=== PATIENT | female | born 1945 | race Caucasian/White ===

== ENCOUNTER → 2017-01-12 | Outpatient (REF) | payer MEDICARE, OTHER | LOC: M LAB REF 16:28 | PROVIDERS: ATTEND Ophthalmology | DX: D23.12 Other benign neoplasm of skin of left eyelid, including canthus (principal) ==

== ENCOUNTER → 2017-09-15 | Outpatient (CLI) | payer MEDICARE, OTHER ==
[~2017-09-15] MED LIST: METHACHOLINE KIT (J7674) INH
== END ==
LOC: M CARPUL 08:39
DX: R91.8 Other nonspecific abnormal finding of lung field (principal)

== ENCOUNTER → 2017-09-15 | Outpatient (CLI) | payer MEDICARE, OTHER | LOC: M RAD 08:20 | DX: R91.8 Other nonspecific abnormal finding of lung field (principal) | CPT/HCPCS: J7674 ==

== ENCOUNTER → 2018-01-21 | Outpatient (CLI) | payer MEDICARE, OTHER | LOC: M RAD 09:36 | DX: R91.8 Other nonspecific abnormal finding of lung field (principal) | CPT/HCPCS: 71250 ==

== ENCOUNTER 2018-04-03 13:09 | Emergency (ER) | payer MEDICARE, OTHER ==
[2018-04-03 13:40] LABS: BEDSIDE GLUCOSE 134 MG/DL (83-110)
[2018-04-03] MEDS: MECLIZINE 25 MG TABLET PO (14:15)
[2018-04-03] MEDS: hydrALAZINE INJ 20 MG/ML VIAL IV ×2 (14:16→15:30)
[2018-04-03] MEDS: NS 1,000 ML IV (14:16)
[2018-04-03 14:39] LABS: BASO # 0.1 10^3/uL (0.0-0.2); BASO % 0.5 % (0.0-1.0); EOS # 0.1 10^3/uL (0.0-0.50); EOS % 0.8 % (0.0-3.0); HEMATOCRIT 41.4 % (36.0-47.0); HEMOGLOBIN 13.4 g/dl (12.0-15.5); IMMATURE GRANULOCYTE % 0.7 % (0-3.0); LYMPH % 17.9 % (24.0-44.0); MEAN CORPUSCULAR HEMOGLOBIN 29.5 pg (27.0-33.0); MEAN CORPUSCULAR HGB CONC 32.4 g/dl (32.0-36.5); MONO # 0.5 10^3/uL (0.0-0.8); MONO % 4.6 % (0.0-5.0); NEUTROPHILS # 8.3 10^3/uL (1.8-7.7); NEUTROPHILS % 75.5 % (36.0-66.0); PLATELET COUNT, AUTOMATED 170 10^3/uL (150-450); RED BLOOD COUNT 4.55 10^6/uL (4.00-5.40); RED CELL DISTRIBUTION WIDTH 13.8 % (11.5-14.5)
[2018-04-03 15:08] LABS: ALBUMIN 3.7 GM/DL (3.2-5.2); ALBUMIN/GLOBULIN RATIO 1.37 (1.00-1.93); ALKALINE PHOSPHATASE 99 U/L (45-117); ALT/SGPT 29 U/L (12-78); ANION GAP 9 MEQ/L (8-16); AST/SGOT 21 U/L (7-37); BILIRUBIN,DIRECT 0.1 MG/DL (0.0-0.2); BILIRUBIN,TOTAL 0.6 MG/DL (0.2-1.0); BLOOD UREA NITROGEN 17 MG/DL (7-18); CALCIUM LEVEL 8.8 MG/DL (8.8-10.2); CARBON DIOXIDE LEVEL 26 MEQ/L (21-32); CHLORIDE LEVEL 107 MEQ/L (98-107); CPK CREATINE PHOSPHOKINASE 73 U/L (26-192); GLOMERULAR FILTRATION RATE > 60.0 (>39); GLUCOSE, FASTING 121 MG/DL (70-100); MB/CK RELATIVE INDEX 1.64 (< OR =4); SODIUM LEVEL 142 MEQ/L (136-145); TOTAL PROTEIN 6.4 GM/DL (6.4-8.2); TROPONIN I < 0.02 NG/ML (< 0.10)
[2018-04-03 15:26] LABS: KETONE, URINE AUTO RFX NEGATIVE (NEGATIVE); LEUKOCYTE ESTERASE UR AUTO RFX NEGATIVE (NEGATIVE); NITRITE, URINE AUTO RFX NEGATIVE (NEGATIVE); RBC, URINE AUTO RFX 0 /HPF (0-3); SPECIFIC GRAVITY UR AUTO RFX 1.009 (1.002-1.035); SQUAM EPITHELIAL CELL UR AURFX 1 /HPF (0-6); WBC, URINE AUTO RFX 1 /HPF (0-3)
== END 2018-04-03 17:08 | disposition short-term general hospital (02) ==
LOC: M ED 13:09
DX: R42 Dizziness and giddiness (principal); R26.89 Other abnormalities of gait and mobility; I10 Essential (primary) hypertension; K21.9 Gastro-esophageal reflux disease without esophagitis; Z79.899 Other long term (current) drug therapy; Z88.5 Allergy status to narcotic agent
CPT/HCPCS: 71045

== ENCOUNTER → 2018-04-13 | Outpatient (CLI) | payer MEDICARE, OTHER ==
[~2018-04-13] MED LIST changes: +BYST10TA2; -METHACHOLINE KIT (J7674) INH; +OXYB5TAB PO; +SIMV20TA2; +TRIAMTERENE
--- NOTE | 2018-04-13 17:06 | REP ---
HISTORY: Followup thyroid nodules. COMPARISON: There are no priors for comparison. Right lobe of the thyroid gland measures 4.6 x 1.6 x 1.7 cm. Left lobe measures 4.5 x 1.5 x 2 cm. The isthmus measures 6 mm. The thyroid parenchyma echo pattern is heterogenous. There are two dominant nodules in the right lobe, one measures 4.3 x 4.4 x 3.8 mm and the other measures 5.9 x 3.8 x 4.5 mm. In the isthmus on the left, there is a 5 mm sized nodule and in the upper pole of the left lobe there is a solid 9 mm sized nodule. In the lower pole on the left posteriorly there is a 1 cm sized solid nodule. IMPRESSION: Solid nodules as described above. Electronically Signed by Ace Daly DO 04/13/2018 05:58 P
== END ==
LOC: M RAD 14:43
PROVIDERS: ATTEND Nurse Practitioner Family
DX: E04.2 Nontoxic multinodular goiter (principal)

== ENCOUNTER → 2018-05-17 | Outpatient (REF) | payer MEDICARE, OTHER | LOC: M LAB REF 17:09 | PROVIDERS: ATTEND Internal Medicine Endocrinology, Diabetes & Metabolism | DX: E04.2 Nontoxic multinodular goiter (principal) ==

== ENCOUNTER → 2019-08-30 | Outpatient (CLI) | payer MEDICARE, OTHER ==
[~2019-08-30] MED LIST changes: +OXYB-54 PO; -OXYB5TAB PO; -SIMV20TA2; +SIMV20TA22
--- NOTE | 2019-08-30 10:58 | REP ---
CT CHEST WITHOUT IV CONTRAST: CT chest performed without IV contrast. Sagittal and coronal reconstruction images are performed. Comparison is made with prior studies dating back to 09/15/2017. Calcified granuloma is seen in the posterior aspect of the right upper lobe. There is an adjacent noncalcified nodule measuring 5 mm, which has remained stable for 2 years. A 3 mm nodule is seen in the right middle lobe and another 3 mm nodule is seen in the left upper lobe, both stable. No new nodule or infiltrate is seen bilaterally. The heart is not enlarged. There is no thoracic aortic aneurysm. There is a slightly prominent precarinal lymph node which has remained stable measuring 1.2 cm in short axis dimension. No axillary adenopathy is seen. Subtle soft tissue nodule of the left lower thyroid is unchanged. Two hypodense nodules in the superior liver are stable. The patient has had a prior cholecystectomy. Right adrenal adenoma is unchanged. There are degenerative changes of the spine. There is a small hiatal hernia. IMPRESSION: Calcified granuloma right upper lobe. Three other noncalcified nodules in the lungs are stable. Slightly prominent precarinal lymph node is stable. These findings are unchanged for approximately 2 years. Electronically Signed by Curtis Flores MD 08/30/2019 11:00 A
== END ==
LOC: M RAD 08:24
PROVIDERS: ATTEND Internal Medicine Pulmonary Disease
DX: R91.8 Other nonspecific abnormal finding of lung field (principal); K44.9 Diaphragmatic hernia without obstruction or gangrene; Z90.49 Acquired absence of other specified parts of digestive tract

== ENCOUNTER → 2021-07-14 | Outpatient (REF) | payer MEDICARE, OTHER | LOC: M LAB REF 12:47 | PROVIDERS: ATTEND Internal Medicine | DX: M19.90 Unspecified osteoarthritis, unspecified site (principal) ==

== ENCOUNTER → 2021-07-15 | Outpatient (CLI) | payer MEDICARE, OTHER | LOC: M PLAIMG 09:53 | PROVIDERS: ATTEND Internal Medicine | DX: M43.06 Spondylolysis, lumbar region (principal) ==

== ENCOUNTER → 2021-09-24 | Outpatient (CLI) | payer MEDICARE, OTHER ==
[~2021-09-24] MED LIST changes: +AMLO1TAB24 PO; +BAYE81TA10 PO; +BYST5TAB2 PO; +D200CAP3 PO; +FISH1000 PO; +LEXA1TAB PO; +LOSA100T5 PO; -SIMV20TA22; +SIMV20TA22 PO; +SPIR-10 PO; +TURM500C PO; +VIT1CAPS22 PO; +VITMTA PO
== END ==
LOC: M LABSMTC 10:18
PROVIDERS: ATTEND Anesthesiology
DX: Z01.818 Encounter for other preprocedural examination (principal); Z11.52 Encounter for screening for COVID-19

== ENCOUNTER 2021-09-29 12:04 | Day surgery (SDC) | payer MEDICARE, OTHER ==
[~2021-09-29] VITALS: Ht 165.1 cm; Wt 132.4 kg
[~2021-09-29 12:04] MED LIST changes: +NS 1,000 ML IV ONE
[2021-09-29] MEDS ORDERED: fentaNYL 100 MCG/2 ML INJECTION As Ordered ONE (12:28)
[2021-09-29] MEDS ORDERED: propofoL 500 MG/50 ML VIAL As Ordered ONE (12:28)
[2021-09-29] MEDS ORDERED: LIDOCAINE 2% 100MG/5ML SDV (FOR ANES.) As Ordered ONE (12:28)
[2021-09-29 13:48] VITALS: BP 135/64
== END 2021-09-29 13:50 | disposition home or self-care (01) ==
LOC: M OPP 12:04
PROVIDERS: ATTEND Internal Medicine Gastroenterology
DX: Z12.11 Encounter for screening for malignant neoplasm of colon (principal); Z80.0 Family history of malignant neoplasm of digestive organs; K57.30 Diverticulosis of large intestine without perforation or abscess without bleeding; K64.0 First degree hemorrhoids; K22.89 Other specified disease of esophagus; K44.9 Diaphragmatic hernia without obstruction or gangrene; K31.89 Other diseases of stomach and duodenum; R12 Heartburn; Z79.02 Long term (current) use of antithrombotics/antiplatelets; Z79.899 Other long term (current) drug therapy; Z88.0 Allergy status to penicillin; Z88.5 Allergy status to narcotic agent
CPT/HCPCS: 43239; 45378; 88305; J3010

== ENCOUNTER → 2021-10-15 | Outpatient (CLI) | payer MEDICARE, OTHER ==
[~2021-10-15] MED LIST changes: -NS 1,000 ML IV ONE
== END ==
LOC: M PLAIMG 16:02
PROVIDERS: ATTEND Internal Medicine
DX: M25.561 Pain in right knee (principal); M25.562 Pain in left knee

== ENCOUNTER → 2021-11-26 | Outpatient (CLI) | payer MEDICARE, OTHER | LOC: M LABSMTC 11:36 | PROVIDERS: ATTEND Family Medicine | DX: Z11.52 Encounter for screening for COVID-19 (principal); Z20.822 Contact with and (suspected) exposure to COVID-19 | CPT/HCPCS: 87426; C9803 ==

== ENCOUNTER → 2022-01-20 | Outpatient (CLI) | payer MEDICARE, OTHER | LOC: M PLAIMG 16:08 | PROVIDERS: ATTEND Internal Medicine | DX: R05.9 Cough, unspecified (principal); R91.8 Other nonspecific abnormal finding of lung field ==

== ENCOUNTER → 2022-09-25 | Outpatient (CLI) | payer MEDICARE, OTHER | LOC: M PLAIMG 13:10 | PROVIDERS: ATTEND Internal Medicine | DX: M43.17 Spondylolisthesis, lumbosacral region (principal); M47.816 Spondylosis without myelopathy or radiculopathy, lumbar region; M54.30 Sciatica, unspecified side ==

== ENCOUNTER → 2023-05-26 | Outpatient (REF) | payer MEDICARE, OTHER ==
[2023-05-26 19:44] LABS: BASO # 0.1 10^3/uL (0.0-0.2); BASO % 0.4 % (0.0-1.0); EOS # 0.2 10^3/uL (0.0-0.5); EOS % 1.6 % (0.0-3.0); HEMATOCRIT 45.7 % (36.0-47.0); HEMOGLOBIN 14.6 g/dl (12.0-15.5); LYMPH # 3.9 10^3/uL (1.5-5.0); MEAN CORPUSCULAR HEMOGLOBIN 30.2 pg (27.0-33.0); MEAN CORPUSCULAR HGB CONC 31.9 g/dl (32.0-36.5); MEAN CORPUSCULAR VOLUME 94.4 fl (80.0-96.0); MONO # 0.9 10^3/uL (0.0-0.8); MONO % 6.6 % (2.0-8.0); NEUTROPHILS # 8.3 10^3/uL (1.5-8.5); NEUTROPHILS % 61.6 % (36.0-66.0); PLATELET COUNT, AUTOMATED 216 10^3/uL (150-450); RED BLOOD COUNT 4.84 10^6/uL (4.00-5.40); WHITE BLOOD COUNT 13.4 10^3/uL (4.0-10.0)
[2023-05-26 20:05] LABS: ALBUMIN 3.7 G/DL (3.2-5.2); ALKALINE PHOSPHATASE 87 U/L (46-116); ALT/SGPT 21 U/L (7.0-40); AST/SGOT 16 U/L (<34); BILIRUBIN,TOTAL 0.6 MG/DL (0.3-1.2); BLOOD UREA NITROGEN 25 MG/DL (9-23); CARBON DIOXIDE LEVEL 28 MMOL/L (20-31); CHLORIDE LEVEL 104 MMOL/L (98-107); CREATININE FOR GFR 0.69 MG/DL (0.55-1.30); GLOMERULAR FILTRATION RATE > 60.0 (>39); GLUCOSE, FASTING 120 MG/DL (74-106); POTASSIUM SERUM 3.3 MMOL/L (3.5-5.1); SODIUM LEVEL 141 MMOL/L (136-145)
== END ==
LOC: M LAB REF 19:26
PROVIDERS: ATTEND Internal Medicine Pulmonary Disease
DX: G47.33 Obstructive sleep apnea (adult) (pediatric) (principal); R06.00 Dyspnea, unspecified

== ENCOUNTER → 2023-06-18 | Outpatient (CLI) | payer MEDICARE, OTHER | LOC: M WUC 12:23 | PROVIDERS: ATTEND Internal Medicine Pulmonary Disease | DX: J45.20 Mild intermittent asthma, uncomplicated (principal) ==

== ENCOUNTER → 2023-11-04 | Outpatient (CLI) | payer MEDICARE, OTHER ==
[~2023-11-04] MED LIST changes: +BYST1TAB2 PO; -BYST5TAB2 PO
== END ==
LOC: M WUC 15:02
PROVIDERS: ATTEND Internal Medicine
DX: E11.69 Type 2 diabetes mellitus with other specified complication (principal); M25.461 Effusion, right knee; M25.462 Effusion, left knee

== ENCOUNTER → 2025-01-08 | Outpatient (CLI) | payer MEDICARE, OTHER ==
[~2025-01-08] MED LIST changes: -BYST10TA2; +BYST1TAB3
== END ==
LOC: M WUC 10:54
PROVIDERS: ATTEND Physician Assistant
DX: M17.0 Bilateral primary osteoarthritis of knee (principal)

== ENCOUNTER → 2025-02-06 | Outpatient (CLI) | payer MEDICARE, OTHER | LOC: M PLAIMG 13:30 | PROVIDERS: ATTEND Internal Medicine | DX: R06.02 Shortness of breath (principal) ==